=== PATIENT | female | born 1990 | race Caucasian/White ===

== ENCOUNTER → 2017-07-12 | Outpatient (CLI) | payer MEDICAID ==
[~2017-07-12] VITALS: Ht 165.1 cm; Wt 63.6 kg
[~2017-07-12] MED LIST: CEFD300C37 PO; OXYC1TAB7 PO; PREN1TAB14 PO
[2017-07-12 11:39] LABS: DAU SCREEN DISCLAIMER
[2017-07-12 11:56] VITALS: BP 125/75
[2017-07-12 12:06] LABS: HEMATOCRIT 33.2 % (34.6-47.8); HEMOGLOBIN 10.9 g/dL (11.7-16.4)
[2017-07-12 12:36] LABS: HIV 1&2 ANTIBODY SCREEN Nonreactive (Nonreactive); HIV-1 p24 ANTIGEN Nonreactive (Nonreactive)
== END | disposition home or self-care (01) ==
LOC: LDOP 11:10
PROVIDERS: ATTEND Specialist
DX: O26.893 Other specified pregnancy related conditions, third trimester (principal); O48.0 Post-term pregnancy; O62.9 Abnormality of forces of labor, unspecified; O99.333 Smoking (tobacco) complicating pregnancy, third trimester; F17.200 Nicotine dependence, unspecified, uncomplicated; R10.9 Unspecified abdominal pain; Z3A.40 40 weeks gestation of pregnancy
CPT/HCPCS: 36415; 59025; 80307; 81001; 85025; 86592; 86703; 86762; 86850; 86900; 87081; 87086; 87340; 87899; 99211; G0435; G0463